=== PATIENT | female | born 1995 | race Caucasian/White ===

== ENCOUNTER 2022-03-31 08:00 | Outpatient (CLI) | payer BC, OTHER ==
[2022-03-31 19:42] LABS: BACTERIAL VAGINOSIS DNA NEGATIVE (NEGATIVE); CANDIDA GLABRATA DNA NEGATIVE (NEGATIVE); CANDIDA GROUP DNA NEGATIVE (NEGATIVE); CANDIDA KRUSEI DNA NEGATIVE (NEGATIVE); TRICHOMONAS VAGINALIS DNA NEGATIVE (NEGATIVE)
[2022-03-31 20:38] LABS: CHLAMYDIA TRACHOMATIS DNA NEGATIVE (NEGATIVE); NEISSERIA GONORRHOEAE DNA NEGATIVE (NEGATIVE)
[2022-04-01 06:11] LABS: HCV AB <0.1 s/co ratio (0.0-0.9)
[2022-04-01 07:10] LABS: RPR Non Reactive (Non Reactive)
[2022-04-02 00:08] LABS: HIV SCREEN 4TH GENERATION Non Reactive (Non Reactive)
[2022-04-02 12:09] LABS: HSV 2 IGG SUPPLEMENTAL TEST Positive (Negative); HSV 2 IGG TYPE SPEC 3.32 index (0.00-0.90)
== END 2022-03-31 23:59 | disposition home or self-care (01) ==
LOC: LAB.N 08:00
PROVIDERS: ATTEND Nurse Practitioner
DX: N89.8 Other specified noninflammatory disorders of vagina (principal)
CPT/HCPCS: 36415; 81514; 86592; 86695; 86696; 86803; 87389; 87491; 87591; 87661

== ENCOUNTER 2023-12-09 04:47 | Outpatient (CLI) | payer OTHER | END 2023-12-09 04:48 | disposition critical access hospital (66) | LOC: EMS 04:47 | DX: R56.9 Unspecified convulsions (principal) | CPT/HCPCS: A0425; A0429 ==

== ENCOUNTER 2023-12-09 05:03 | Emergency (ER) | payer OTHER ==
--- NOTE | 2023-12-09 05:39 | ED Physician Documentation ---
PD HPI SEIZURE - Stated complaint Stated Complaint: SZ - Chief complaint Chief Complaint: Neuro - History obtained from History obtained from: Patient, Friend (boyfriend) - Additional information Additional information: 28-year-old male with history of seizure disorder on Keppra 1500 twice daily and Lamictal 75 twice daily presents with 5-minute generalized tonic-clonic seizure witnessed by boyfriend around 4:15 AM with protracted postictal episode, resolving upon arrival to the ED. Patient denies fever chills, recent illness, head injury, or other issues. PD PAST MEDICAL HISTORY - Past Medical History Past Medical History: Yes Cardiovascular: High cholesterol Neuro: Seizure disorder Endocrine/Autoimmune: HyPOthyroidism [employer]: Endometriosis Psych: Anxiety Other Past Medical History: epilepsy - noctural seizures with auras during the day - Past Surgical History Past Surgical History: No - Present Medications Home Medications: Ambulatory Orders Medication Instructions Recorded Confirmed Cholecalciferol (Vitamin D3) 1 cap PO DAILY 12/09/23 12/09/23 [Vitamin D3] Drospirenone [Slynd] 1 tab PO DAILY 12/09/23 12/09/23 Folic Acid 1 tab PO DAILY 12/09/23 12/09/23 Levetiracetam [Keppra] 1,500 mg PO BID 12/09/23 12/09/23 Magnesium 1 tab PO DAILY 12/09/23 12/09/23 [place]-3 Fatty Acids [[place]-3] 1 cap PO DAILY 12/09/23 12/09/23 lamoTRIgine [Lamictal] 75 mg PO BID 12/09/23 12/09/23 valACYclovir [Valtrex] 500 mg PO DAILY 12/09/23 12/09/23 - Allergies Allergies/Adverse Reactions: Allergies Allergy/AdvReac Type Severity Reaction Status Date / Time grapefruit AdvReac Unknown Verified 12/09/23 05:25 - Social History Does the pt smoke?: No Smoking Status: Never smoker PD ED PE NORMAL - Vitals Vital signs reviewed: Yes - General General: Alert and oriented X 3, No acute distress, Well developed/nourished - HEENT HEENT: Atraumatic, PERRL, EOMI - Neck Neck: Supple, no meningeal sign - Cardiac Cardiac: RRR - Respiratory Respiratory: No respiratory distress, Clear bilaterally - Abdomen Abdomen: Non tender, Non distended - Back Back: No CVA TTP - Derm Derm: Normal color, Warm and dry - Extremities Extremities: No deformity - Neuro Neuro: Alert and oriented X 3, hydrologist 2-12 intact, No motor deficit, No sensory deficit, Normal speech Eye Opening: Spontaneous Motor: Obeys Commands Verbal: Oriented GCS Score: 15 - Psych Psych: Normal mood, Normal affect Results - Vitals Vitals: Vital Signs - 24 hr 12/09/23 12/09/23 05:09 05:32 Temperature 36.8 C Heart Rate 87 75 Respiratory 16 17 Rate Blood Pressure 109/76 94/74 O2 Saturation 98 98 Oxygen O2 Source Room air - Labs Labs: Laboratory Tests 12/09/23 12/09/23 05:44 05:44 WBC 4.8 RBC 4.20 Hgb 14.1 Hct 41.0 MCV 97.6 MCH 33.6 H MCHC 34.4 RDW 11.7 L Plt Count 258 MPV 8.6 Neut # (Auto) 2.8 Lymph # (Auto) 1.5 [place] # (Auto) 0.3 Eos # (Auto) 0.2 Baso # (Auto) 0.0 Absolute Nucleated RBC 0.00 Nucleated RBC % 0.0 Sodium 136 Potassium 4.0 Chloride 102 Carbon Dioxide 28 Anion Gap 6.0 BUN 20 Creatinine 1.3 Estimated GFR (MDRD) 48 L Glucose 83 Calcium 9.3 Total Bilirubin 0.4 AST 28 ALT 24 Alkaline Phosphatase 41 L Total Protein 7.1 Albumin 4.2 Globulin 2.9 Albumin/Globulin Ratio 1.4 Lipase 25 PD Medical Decision Making - ED course ED course: 28-year-old woman presents with seizure episode, self resolving without any medications. Basic lab work was send as well as Keppra and Lamictal levels. Plan to follow-up outpatient. Return precautions given. Departure - Departure Disposition: Home, Self Care Clinical Impression: Seizure Condition: Stable Instructions: First Aid Seizures Comments: You were seen in the emergency department for seizure. Your labwork and monitoring was normal. Please follow-up with your neurologist and return to the emergency department if you have any new or worsening symptoms or other concerns. Forms: PCP List
[2023-12-09 05:47] LABS: BASOPHILS % (AUTO) 0.8 %; EOSINOPHILS # (AUTO) 0.2 10^3/uL (0.0-0.7); EOSINOPHILS % (AUTO) 4.3 %; HGB - HEMOGLOBIN 14.1 g/dL (12.0-16.0); LYMPHOCYTES # (AUTO) 1.5 10^3/uL (1.5-3.5); LYMPHOCYTES % (AUTO) 31.5 %; MEAN CORPUSCULAR HEMOGLOBIN 33.6 pg (27.0-31.0); MEAN CORPUSCULAR HGB CONC 34.4 g/dL (32.0-36.0); MEAN CORPUSCULAR VOLUME 97.6 fL (81.0-99.0); MEAN PLATELET VOLUME 8.6 fL (7.9-10.8); MONOCYTES # (AUTO) 0.3 10^3/uL (0.0-1.0); MONOCYTES % (AUTO) 5.4 %; NEUTROPHILS # (AUTO) 2.8 10^3/uL (1.5-6.6); NEUTROPHILS % (AUTO) 57.8 %; PLT - PLATELET COUNT 258 10^3/uL (130-450); RED CELL DISTRIBUTION WIDTH 11.7 % (12.0-15.0); WHITE BLOOD COUNT 4.8 x10^3/uL (4.8-10.8)
[2023-12-09] MEDS: KETOROLAC 15 MG/ML VIAL IVP STA (05:59)
[2023-12-09] MEDS: SODIUM CHLORIDE 0.9% 1,000 ML IV STA (05:59)
[2023-12-09 06:01] LABS: ALBUMIN 4.2 g/dL (3.2-5.5); ALBUMIN/GLOBULIN RATIO 1.4 (1.0-2.2); BILIRUBIN,TOTAL 0.4 mg/dL (0.2-1.0); CALCIUM 9.3 mg/dL (8.5-10.3); CREATININE 1.3 mg/dL (0.6-1.3); TOTAL PROTEIN 7.1 g/dL (6.4-8.9)
[2023-12-09] MEDS: LORazepam 2 MG/ML VIAL IVP STA (06:01)
[2023-12-09] MEDS: ONDANSETRON 4 MG/2 ML VIAL IVP STA (06:25)
[2023-12-09] MEDS: FAMOTIDINE 20 MG/2 ML VIAL IVP STA (06:27)
[2023-12-09 06:51] VITALS: BP 118/67; O2SAT 99
== END 2023-12-09 06:51 | disposition home or self-care (01) ==
LOC: EDUNIT# → ED 05:03
DX: G40.802 Other epilepsy, not intractable, without status epilepticus (principal); E03.9 Hypothyroidism, unspecified; F41.9 Anxiety disorder, unspecified
CPT/HCPCS: 36415; 80053; 80175; 80177; 83690; 85025; 96374; 96375; 99283; 99285; J2060